=== PATIENT | male | born 1955 | race Caucasian/White ===

== ENCOUNTER 2021-04-25 14:04 | Emergency (ER) | payer MEDICARE ==
[~2021-04-25] VITALS: Ht 172.7 cm; Wt 80.4 kg
--- NOTE | 2021-04-25 14:13 | PHYS DOC ---
Adult General HPI HPI Patient is a 65-year-old male presents emergency department complaining of right flank pain since evening approximately 7 PM. 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 Patient denies numbness or tingling down his extremities, denies back pain, denies extremity swelling, denies difficulty walking. Patient reports his pain a 6-8 when he twists or bends however reports 0 out of 10 pain if he is sitting still. Patient states he took 400 mg of ibuprofen yesterday and did not notice much relief. Patient denies seeing any blood in his urine, denies urinary frequency or urinary burning or urinary pressure. Patient denies seeing any blood in his stool. Patient states he is not allergic any medications and takes no prescription medications at home, patient states he does not have a primary care physician however last year reports having a left hip replacement at a hospital in [facility]. Patient denies any chest pains, shortness of breath, states he did have a low-grade fever of 100.0 at home earlier today however does not have a fever at this time. Patient states he did take 400 mg of ibuprofen at noon today. Patient denies using any ice applications or heat applications for pain relief. Patient denies any other physical complaints or physical concerns. (ROSE NOONAN APRN) Review of Systems Review of Systems 14 body systems of review of systems have been reviewed. See HPI for pertinent positives and negative responses, otherwise all other systems are negative, nonpertinent or noncontributory. Constitutional: Negative except as outlined in HPI above. Skin: Negative except as outlined in HPI above. Eyes: Negative except as outlined in HPI above. HENT: Negative except as outlined in HPI above. Respiratory: Negative except as outlined in HPI above. Cardiovascular: Negative except as outlined in HPI above. GI: Negative except as outlined in HPI above. : Negative except as outlined in HPI above. Musculoskeletal: Negative except as outlined in HPI above. Integument: Negative except as outlined in HPI above. Neurologic: Negative except as outlined in HPI above. Endocrine: Negative except as outlined in HPI above. Lymphatic: Negative except as outlined in HPI above. Psychiatric: Negative except as outlined in HPI above. (ROSE NOONAN APRN) Physical Exam Physical Exam Constitutional: Well developed, well nourished, no acute distress, non-toxic appearance. 65-year-old male in no apparent distress. HENT: Normocephalic, atraumatic. Eyes: Conjunctiva normal, no discharge. Neck: Normal range of motion, no stridor. Cardiovascular: No cyanosis appreciated, distal cap refill less than 2 seconds. Lungs & Thorax: Patient is in no respiratory distress, no audible adventitious lung sounds appreciated. Abdomen: Nontender, no abnormalities noted. Normal bowel sounds all 4 quadrants, no McBurney's point tenderness, no psoas sign, no Vivar sign, no rebound tenderness appreciated, no discoloration of the abdomen, no masses appreciated, no hernias appreciated. No areas of ecchymosis or skin discoloration appreciated. Skin: Warm, dry, no erythema, no rash. Back: No tenderness, no deformities. No CVA tenderness on the left or right, pain to palpation on right flank without radiation of pain, no areas of ecchym osis or skin discoloration appreciated. Extremities: No tenderness, no cyanosis, no clubbing, ROM intact, no edema. Neurologic: Alert and oriented X 3, normal motor function, normal sensory function, no focal deficits noted. Psychologic: Affect normal, judgement normal, mood normal. (ROSE NOONAN APRN) Current Patient Data Lab Results Laboratory Tests Test 04/25/21 14:28 White Blood Count 16.0 x10^3/uL Red Blood Count 5.16 x10^6/uL Hemoglobin 15.7 g/dL Hematocrit 46.0 % Mean Corpuscular Volume 89 fL Mean Corpuscular Hemoglobin 30 pg Mean Corpuscular Hemoglobin Concent 34 g/dL Red Cell Distribution Width 14.2 % Platelet Count 293 x10^3/uL Neutrophils (%) (Auto) 83 % Lymphocytes (%) (Auto) 7 % Monocytes (%) (Auto) 10 % Eosinophils (%) (Auto) 0 % Basophils (%) (Auto) 1 % Neutrophils # (Auto) 13.3 x10^3uL Lymphocytes # (Auto) 1.1 x10^3/uL Monocytes # (Auto) 1.6 x10^3/uL Eosinophils # (Auto) 0.0 x10^3/uL Basophils # (Auto) 0.1 x10^3/uL Segmented Neutrophils % 81 % Band Neutrophils % 4 % Lymphocytes % 7 % Atypical Lymphocytes % (Manual) 1 % Monocytes % 7 % Platelet Estimate Adequate Urine Collection Type Unknown Urine Color Yellow Urine Clarity Clear Urine pH 6.0 Urine Specific [place] >=1.030 Urine Protein 100 mg/dl Urine Glucose (UA) Neg mg/dL Urine Ketones (Stick) Neg mg/dL Urine Blood Mod Urine Nitrite Neg Urine Bilirubin Small Urine Urobilinogen Dipstick 0.2 mg/dL Urine Leukocyte Esterase Neg Urine RBC 6-10 /HPF Urine WBC Rare /HPF Urine Squamous Epithelial Cells Occ /LPF Urine Bacteria 0 /HPF Urine Hyaline Casts Few /HPF Urine Granular Casts Few /HPF Urine Mucus Marked /LPF Sodium Level 138 mmol/L Potassium Level 4.7 mmol/L Chloride Level 101 mmol/L Carbon Dioxide Level 26 mmol/L Anion Gap 11 Blood Urea Nitrogen 17 mg/dL Creatinine 1.2 mg/dL Estimated GFR (Cockcroft-Gault) 60.8 BUN/Creatinine Ratio 14 Glucose Level 121 mg/dL Calcium Level 9.7 mg/dL Total Bilirubin 0.8 mg/dL Aspartate Amino Transf (AST/SGOT) 21 U/L Alanine Aminotransferase (ALT/SGPT) 30 U/L Alkaline Phosphatase 112 U/L Total Protein 8.4 g/dL Albumin 3.1 g/dL Albumin/Globulin Ratio 0.6 Lipase 81 U/L Current Medications Medications (Trade) Dose Ordered Sig/Dori Route PRN Reason Start Time Stop Time Status Last Admin Dose Admin Ketorolac Tromethamine (Toradol 30mg Vial) 30 mg 1X ONCE IVP 04/25/21 14:30 04/25/21 14:45 DC 04/25/21 14:50 Sodium Chloride 1,000 ml @ 1,000 mls/hr 1X ONCE IV 04/25/21 14:30 04/25/21 15:29 DC 04/25/21 14:49 Fentanyl Citrate (Fentanyl 2ml Vial) 50 mcg 1X ONCE IVP 7/17/21 15:15 04/25/21 15:16 DC Iohexol (Omnipaque 300 Mg/ml) 75 ml 1X ONCE IV 04/25/21 16:00 04/25/21 16:24 DC Piperacillin Sod/ Tazobactam Sod (Zosyn Per Pharmacy) 1 each PRN DAILY PRN MC SEE COMMENTS 04/25/21 17:45 Piperacillin Sod/ Tazobactam Sod 3.375 gm/Sodium Chloride 50 ml @ 100 mls/hr Q6HRS IV 04/25/21 18:00 (ROSE NOONAN APRN) EKG EKG [] (ROSE NOONAN APRN) Radiology/Procedures Radiology/Procedures [] (ROSE NOONAN APRN) Heart Score C/O Chest Pain: No Risk Factors: Risk Factors: DM, Current or recent (<one month) smoker, HTN, HLP, family history of CAD, obesity. Risk Scores: Risk Factors: DM, Current or recent (<one month) smoker, HTN, HLP, family history of CAD, obesity. (ROSE NOONAN APRN) Course & Med Decision Making Course & Med Decision Making Pertinent Labs and Imaging studies reviewed. (See chart for details) 65-year-old male, vital signs reviewed, presents emergency department concerning right flank pain and fear he might have appendicitis. Physical examination is nonconcerning for abdominal process or appendicitis, physical examination is consistent with musculoskeletal strain of the right flank most likely related to using his heavy equipment while working with concrete. Will order urinalysis assay to rule out hematuria, CBC, CMP, 1 L normal saline, 30 mg Toradol for pain. Will consider imaging pending urinalysis assay and serum lab results. The patient's urine did have microscopic blood, however patient's CBC showed a mild leukocytosis, the patient reported total pain relief with Toradol pain medication given, lab work equivocal, and able to differentiate between appendicitis versus nephrolithiasis versus other abdominal process, will order CT abdomen pelvis with IV contrast. Physical examination negative for appendicitis at this time, patient continues to have no McBurney's point tenderness, negative psoas sign, continues to have right flank pain to palpation. Patient reports no pain with movement or bending of the torso at this time. CT report concerning for ruptured appendicitis, ordered Zosyn IV per pharmacy, spoke with patient at bedside concerning CT results, recommended transfer to hospital that could perform surgical services, patient is amenable to this plan, patient states [facility] is satisfactory. Discussed patient case and emergency department work-up with [facility] general surgeon Dr. Perkins who agrees the patient's presentation and case warrants admission to the hospital, Dr. Perkins did not recommend any further antibiotic coverage other than the Zosyn per pharmacy dosing, will admit to hospitalist service, Dr. Perkins will consult for surgical services. Discussed patient case and emergency department work-up with [facility] hospitalist Dr. Orourke who agrees the patient's presentation and case warrants admission to the hospital, Dr. Orourke will assume patient care for transfer and admission to [facility] medical surgical unit. 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 (ROSE NOONAN APRN) Dragon Disclaimer Dragon Disclaimer This electronic medical record was generated, in whole or in part, using a voice recognition dictation system. (ROSE NOONAN APRN) Attending Co-Sign The patient was seen and interviewed as well as examined at the bedside. The chart was reviewed. The case was discussed. Agree with the plan of care. (QUIQUE MILLER DO) Departure Departure: Impression: Primary Impression: Acute appendicitis with rupture Disposition: 02 SHORT TERM HOSPITAL (Patient admitted to Dr. Orourke at [facility], general surgeon Dr. Perkins consulted. Medical surgical unit) Condition: STABLE ROSE NOONAN APRN Apr 25, 2021 14:13 QUIQUE MILLER DO Apr 26, 2021 06:14
[2021-04-25] MEDS ORDERED: KETOROLAC 30 MG/ML VIAL. IVP ONE (14:30)
[2021-04-25] MEDS ORDERED: IV NORMAL SALINE 1,000ML 1,000 ML IV ONE (14:30)
[2021-04-25 15:10] LABS: CALCIUM 9.7 mg/dL (8.5-10.1); CREATININE 1.2 mg/dL (0.7-1.3); GFR 60.8; POTASSIUM 4.7 mmol/L (3.5-5.1)
[2021-04-25 15:13] LABS: BASO # 0.1 x10^3/uL (0.0-0.2); BASO % 1 % (0-3); EOS % 0 % (0-3); HEMOGLOBIN 15.7 g/dL (13.0-17.5); LYMPH # 1.1 x10^3/uL (1.0-4.8); LYMPH % 7 % (24-48); MEAN CORPUSCULAR HEMOGLOBIN 30 pg (25-35); MEAN CORPUSCULAR HGB CONC 34 g/dL (31-37); MEAN CORPUSCULAR VOLUME 89 fL (79-100); MONO # 1.6 x10^3/uL (0.0-1.1); MONO % 10 % (0-9); NEUT # 13.3 x10^3uL (1.8-7.7); NEUT % 83 % (31-73); PLATELET COUNT 293 x10^3/uL (140-400); RED BLOOD COUNT 5.16 x10^6/uL (4.30-5.70); RED CELL DISTRIBUTION WIDTH 14.2 % (11.5-14.5)
[2021-04-25 15:15] LABS: ALBUMIN 3.1 g/dL (3.4-5.0); ALBUMIN/GLOBULIN RATIO 0.6 (1.0-1.7); TOTAL BILIRUBIN 0.8 mg/dL (0.2-1.0); TOTAL PROTEIN 8.4 g/dL (6.4-8.2)
[2021-04-25 15:26] LABS: COLOR,URINE YELLOW
[2021-04-25 15:27] LABS: BACTERIA,URINE 0 /HPF (0-FEW); BILIRUBIN,URINE SMALL (NEG); CLARITY,URINE CLEAR; GLUCOSE,URINE NEG (NEG); GRANULAR CASTS,URINE FEW /HPF; HYALINE CASTS, URINE FEW /HPF; NITRITE,URINE NEG (NEG); SQUAMOUS EPITHELIAL CELL,UR OCC /LPF; UROBILINOGEN,URINE 0.2 mg/dL (0.2 mg/dL); WBC,URINE RARE /HPF (0-4)
[2021-04-25] MEDS ORDERED: IOHEXOL 300 MG/ML 75 ML VIAL. IV ONE (16:00)
--- NOTE | 2021-04-25 17:20 | RAD ---
CT ABDOMEN+PELVIS W History: Right flank pain. Stone versus appendicitis. Comparison: None. Technique: CT of the abdomen and pelvis with intravenous contrast. Findings: Bilateral dependent atelectasis. Heart is normal. Subcentimeter hepatic cyst in the left lobe. The gallbladder, pancreas, spleen, adrenal glands, kidne ys ureters and bladder are unremarkable. Nondistended stomach is unremarkable. Small bowel is within normal limits. There is a acute appendici tis with suspected rupture and adjacent abscess measuring 5.0 x 1.4 x 1.3 cm. Small 3 mm fecalith nayan r the appendiceal base. Fluid tracks along the retroperitoneum and right paracolic gutter.. No free a ir. Mild sigmoid diverticulosis. Fat-containing left inguinal hernia. Left total hip arthroplasty without evidence for complication. M ild degenerative changes of the right hip. Disc height loss and disc bulge at L5-S1. Impression: 1. Acute perforated appendicitis computed by abscess and fecalith. No free air. This suspected absce ss could also represent an irregular perforated appendix as it maintains a somewhat tubular shape. ------ Exposure: One or more of the following individualized dose reduction techniques were utilized for thi s examination: 1. Automated exposure control 2. Adjustment of the mA and/or kV according to patient size 3. Use of iterative reconstruction technique. Electronically signed by: Wesley Zayas MD (04/25/2021 5:18 PM) [id number]
[2021-04-25] MEDS ORDERED: PIP/TAZO PER PHARMACY MC PRN (17:45)
[2021-04-25 17:47] LABS: % ATYL 1 % (0-0); % BANDS 4 % (0-9); % LYMPHS 7 % (24-48); % MONOS 7 % (0-10); % SEGS 81 % (35-66)
[2021-04-25 17:48] LABS: PLT ESTIMATE ADEQUATE (ADEQUATE)
[2021-04-25] MEDS ORDERED: PIPERACILLIN/TAZOBACTAM 3.375 GM in IV NORMAL SALINE 50ML 50 ML IV SCH (18:00)
[2021-04-25] MEDS ORDERED: IV NORMAL SALINE 50ML 50 ML ONE (18:26)
[2021-04-25] MEDS ORDERED: PIPERACILLIN/TAZOBACTAM 3.375 GM VIAL IV ONE (18:27)
[2021-04-25 19:30] VITALS: BP 138/74
== END 2021-04-25 19:37 | disposition short-term general hospital (02) ==
LOC: ER 14:04
DX: K35.32 Acute appendicitis with perforation, localized peritonitis, and gangrene, without abscess (principal)
CPT/HCPCS: 36415; 74177; 80053; 81001; 83690; 85007; 85025; 87040; 87205; 96361; 96365; 96375; 99285; J1885; J2543; J7030